=== PATIENT | female | born 1935 | race Caucasian/White ===

== ENCOUNTER 2019-01-22 11:24 | Emergency (ER) | payer BC ==
[~2019-01-22] VITALS: Ht 162.6 cm; Wt 62.6 kg
[~2019-01-22 11:24] MED LIST: ADULT LOW DOSE81 MG PO; DIOVAN 80 MG TA80 M1 PO; OXYBUTYNIN 5 MG5 M2 PO; PRAVACHOL 20 MG20 M1 PO; ZIAC 10-6.25 M1 EACH PO
[2019-01-22] MEDS ORDERED: LOSARTAN-HCTZ1 EACH PO (11:38)
[2019-01-22] MEDS ORDERED: VITAMIN D1000 UNI1 PO (11:38)
[2019-01-22] MEDS ORDERED: MULTIVITAMINS PO (11:38)
[2019-01-22 12:22] LABS: HEMATOCRIT 40.1 % (37.0-47.0); HEMOGLOBIN 13.8 gm/dL (12.0-15.0); MCH 29.9 pg (26.0-34.0); MCHC 34.5 g/dL (28.0-37.0); MCV 86.9 fL (80.0-100.0); MPV 7.3 fl. (7.2-11.1); NUCLEATED RBCS 0 /100WBC; PLATELET COUNT* 128 thou/uL (150-400); RBC 4.61 mil/uL (4.20-5.00); RDW-CV 13.4 % (10.5-14.5); WBC 12.7 thou/uL (4.0-11.0)
[2019-01-22 12:31] LABS: CALCIUM 8.7 mg/dL (8.5-10.1); CREATININE 0.8 mg/dL (0.6-1.3); POTASSIUM 3.8 mmol/L (3.5-5.1)
[2019-01-22 12:35] LABS: ALBUMIN 3.3 g/dL (3.4-5.0); TOTAL BILIRUBIN 0.8 mg/dL (<0.1-1.0); TOTAL PROTEIN 6.4 g/dL (6.4-8.2)
[2019-01-22 12:57] LABS: ABSOLUTE EOSINOPHILS 0.1 thou/uL (0.0-0.7); ABSOLUTE LYMPHOCYTES 0.3 thou/uL (0.8-5.3); ABSOLUTE MONOCYTES 0.8 thou/uL (0.0-1.2); ABSOLUTE NEUTROPHILS 11.6 thou/uL (1.6-8.1); PLATELET ESTIMATE DECREASED
[2019-01-22 14:20] LABS: URINE BILIRUBIN NEGATIVE (Negative); URINE BLOOD NEGATIVE (Negative); URINE CLARITY CLEAR; URINE COLOR YELLOW; URINE GLUCOSE-RANDOM NEGATIVE (Negative); URINE KETONES NEGATIVE (Negative); URINE LEUKOCYTES-REFLEX 1+ (Negative); URINE NITRITE-REFLEX NEGATIVE (Negative); URINE PROTEIN NEGATIVE (Negative); URINE UROBILINOGEN 0.2 E.U./dl (0.2-1.0)
[2019-01-22 14:25] LABS: SQUAMOUS >10 Many /LPF (0-3)
[2019-01-22 14:27] LABS: BACTERIA-REFLEX 1-9 Few /HPF (None Seen); CASTS None Seen /LPF (None Seen); CRYSTALS None Seen /LPF (None Seen); MUCUS 4-6 Moderate strn/LPF (None Seen); URINE RBC None Seen /HPF (0-2); URINE WBC-REFLEX 0-5 Rare /HPF (0-5)
--- NOTE | 2019-01-22 15:02 | EKG ---
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
[2019-01-22] MEDS ORDERED: ZOFRAN ODT4 MG PO (15:31)
[2019-01-22 15:39] VITALS: BP 149/56
== END 2019-01-22 15:41 | disposition home or self-care (01) ==
LOC: M.ERS 11:24
PROVIDERS: Personal Emergency Response Attendant
DX: R11.2 Nausea with vomiting, unspecified (principal); R19.7 Diarrhea, unspecified; I10 Essential (primary) hypertension; K21.9 Gastro-esophageal reflux disease without esophagitis; Z88.6 Allergy status to analgesic agent

== ENCOUNTER 2019-08-28 07:34 | Emergency (ER) | payer BC ==
[~2019-08-28] VITALS: Ht 162.6 cm; Wt 62.6 kg
[~2019-08-28 07:34] MED LIST changes: +LOSARTAN-HCTZ1 EACH PO; +MULTIVITAMINS PO; +VITAMIN D1000 UNI1 PO; +ZOFRAN ODT4 MG PO
[2019-08-28] MEDS ORDERED: ZIAC 10-6.25 M1 EACH PO (07:46)
[2019-08-28 08:03] LABS: MCH 29.7 pg (26.0-34.0); MCV 84.9 fL (80.0-100.0); MPV 7.4 fl. (7.2-11.1); RBC 5.06 mil/uL (4.20-5.00); RDW-CV 13.7 % (10.5-14.5)
[2019-08-28 08:16] LABS: CREATININE 0.9 mg/dL (0.6-1.3); POTASSIUM 3.7 mmol/L (3.5-5.1)
[2019-08-28 08:20] LABS: ALBUMIN 3.8 g/dL (3.4-5.0); TOTAL BILIRUBIN 0.9 mg/dL (<0.1-1.0); TOTAL PROTEIN 7.4 g/dL (6.4-8.2)
[2019-08-28 08:40] VITALS: BP 147/68
--- NOTE | 2019-08-28 10:34 | EKG ---
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 : 1935 Requested By: Loco Brown Order Number: [id number] MD: Chintan Miller Measurements Intervals [place] Rate: 61 P: 49 NC: 168 QRS: 7 QRSD: 93 T: 79 QT: 418 QTc: 421 Interpretive Statements Sinus rhythm Baseline wander in lead(s) V5 Compared to ECG 01/22/2019 13:48:47 T-wave abnormality no longer present Electronically Signed On 08-28-2019 10:32:24 CDT by Chintan Miller [email or web address] <ELECTRONICALLY SIGNED> By: Chintan Miller MD, [facility] 08/28/19 1032 0745 0745 Chintan Miller MD, [facility] /EPI
== END 2019-08-28 08:40 | disposition home or self-care (01) ==
LOC: M.ERS 07:34
PROVIDERS: Emergency Medicine Emergency Medical Services
DX: I10 Essential (primary) hypertension (principal); K21.9 Gastro-esophageal reflux disease without esophagitis; Z88.6 Allergy status to analgesic agent